=== PATIENT | female | born 1935 | race Caucasian/White ===

== ENCOUNTER 2016-07-21 11:14 | Emergency (ER) | payer OTHER, MEDICARE ==
[~2016-07-21] VITALS: Ht 175.3 cm; Wt 73.0 kg
[~2016-07-21 11:14] MED LIST: ASPI81 PO; LEXA10TA PO; LORTA5 PO; MULTCAP13 PO; SIMV20 PO
[2016-07-21 11:29] VITALS: BP 152/84; PULSE 79; RESP 17; TEMP 98.2; O2SAT 98
[2016-07-21] MEDS ORDERED: MULT1TAB84 PO (11:52)
[2016-07-21] MEDS ORDERED: LEXA10TA PO (11:52)
[2016-07-21] MEDS ORDERED: ZOCO20TA PO (11:52)
[2016-07-21] MEDS ORDERED: ASPI1TAB69 PO (11:52)
[2016-07-21] MEDS ORDERED: KETOROLAC TROMETHAMINE 60 MG/2 ML (IM) VIAL IM ONE (12:15)
[2016-07-21] MEDS ORDERED: ORPHENADRINE INJ 60 MG/2 ML AMP IM ONE (12:15)
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
[2016-07-21] MEDS ORDERED: MELO-1 PO (13:31)
[2016-07-21] MEDS ORDERED: CYCL5TAB PO (13:31)
== END 2016-07-21 13:35 | disposition home or self-care (01) ==
LOC: PHEFT 11:14
DX: S16.1XXA Strain of muscle, fascia and tendon at neck level, initial encounter (principal); I10 Essential (primary) hypertension; I50.9 Heart failure, unspecified; E78.00 Pure hypercholesterolemia, unspecified; F41.8 Other specified anxiety disorders; M19.90 Unspecified osteoarthritis, unspecified site; V43.52XA Car driver injured in collision with other type car in traffic accident, initial encounter; Y93.9 Activity, unspecified; Y92.9 Unspecified place or not applicable; Y99.9 Unspecified external cause status
CPT/HCPCS: 72040; 96372; 99283; J1885; J2360

== ENCOUNTER 2017-08-15 08:41 | Emergency (ER) | payer MEDICARE ==
[~2017-08-15] VITALS: Ht 175.3 cm; Wt 73.0 kg
[~2017-08-15 08:41] MED LIST changes: +ASPI1TAB69 PO; -ASPI81 PO; +CYCL5TAB PO; -LORTA5 PO; +MELO15TA20 PO; +MULT1TAB84 PO; -MULTCAP13 PO; -SIMV20 PO; +ZOCO20TA PO
[2017-08-15 08:58] VITALS: BP 134/74; PULSE 113; RESP 22; TEMP 99.2; O2SAT 100
--- NOTE | 2017-08-15 09:27 | RADRPT ---
EXAM DATE/TIME: 08/15/2017 09:11 [facility] COMPARISON: No previous studies available for comparison. INDICATIONS : Cough and fever. MEDICAL HISTORY : None. SURGICAL HISTORY : None. ENCOUNTER: Initial ACUITY: 1 week PAIN SCORE: 4/10 LOCATION: Bilateral chest FINDINGS: Calcified left lower lobe nodule. No significant focal parenchymal or pleural opacities. Cardiomedias tinal contours are within normal limits. Bony thorax is intact. CONCLUSION: 1. Left lower lobe granuloma. 2. No acute cardiopulmonary disease. Robert Brady MD on August 15, 2017 at 9:23 Board Certified Radiologist. This report was verified electronically.
[2017-08-15 09:57] LABS: AUTOMATED NEUTROPHIL # 5.4 TH/MM3 (1.8-7.7); BASOPHIL % 0.4 % (0.0-2.0); EOSINOPHIL # 0.1 TH/MM3 (0-0.4); EOSINOPHIL % 0.8 % (0.0-4.0); HEMATOCRIT 44.3 % (35.0-46.0); HEMOGLOBIN 15.1 GM/DL (11.6-15.3); LYMPH % 24.2 % (9.0-44.0); LYMPHOCYTE # 2.1 TH/MM3 (1.0-4.8); MEAN CELL VOLUME 89.4 FL (80.0-100.0); MEAN CORPUSCULAR HEMOGLOBIN 30.5 PG (27.0-34.0); MEAN CORPUSCULAR HGB CONC 34.1 % (32.0-36.0); MONO % 14.1 % (0.0-8.0); MONOCYTE # 1.2 TH/MM3 (0-0.9); NEUT % 60.5 % (16.0-70.0); PLATELET COUNT 172 TH/MM3 (150-450); RED BLOOD COUNT 4.95 MIL/MM3 (4.00-5.30); RED CELL DISTRIBUTION WIDTH 13.5 % (11.6-17.2); WHITE BLOOD COUNT 8.8 TH/MM3 (4.0-11.0)
[2017-08-15 10:04] LABS: PROTHROMBIN TIME - PATIENT 10.3 SEC (9.8-11.6)
[2017-08-15 10:16] LABS: BICARBONATE 24.6 MEQ/L (21.0-32.0); CALCIUM 8.7 MG/DL (8.5-10.1); CREATININE 1.12 MG/DL (0.50-1.00)
[2017-08-15 10:54] VITALS: BP 125/73; PULSE 94; RESP 19; O2SAT 98
--- NOTE | 2017-08-15 10:54 | PD ---
HPI Chief Complaint: Respiratory Symptoms Time Seen by Provider: 10:48 Travel History International Travel<30 days: No Contact w/Intl Traveler<30days: No Traveled to known affect area: No History of Present Illness HPI 81-year-old female patient with history of recent bronchitis, has had coughing, nasal congestion for several days, have been started on Tamiflu by her physician yesterday, presents to the ER today because she states she has not feeling better. She denies any recent fevers, vomiting, abdominal pains, chest pains, or other issues. Modifying Factors: None Associated Signs & Symptoms: Coughing, nasal congestion, shortness of breath Risk Factors: Recently started on Tamiflu PFSH Past Medical History Arthritis: Yes Blood Disorders: No Anxiety: Yes Depression: Yes Heart Rhythm Problems: No Cancer: Yes (SKIN CANCER) Cardiovascular Problems: Yes High Cholesterol: Yes Chemotherapy: No Chest Pain: No Congestive Heart Failure: Yes Diabetes: No Diminished Hearing: No Endocrine: No Genitourinary: Yes (URINARY INFECTION, CONSTRICTIONS OF URETHRA) Hepatitis: No Hiatal Hernia: No Hypertension: Yes Immune Disorder: No Medical other: Yes (ARTHRITIS) Musculoskeletal: Yes (ARTHRITIS) Neurologic: No Psychiatric: Yes Reproductive: No Respiratory: No Immunizations Current: No Myocardial Infarction: No Radiation Therapy: No Shingles: Yes Sickle Cell Disease: No Thyroid Disease: No Menopausal: Yes Past Surgical History Abdominal Surgery: Yes (APPENDECTOMY) AICD: No Appendectomy: Yes Arteriovenous Shunt: No Cardiac Surgery: No Endocrine Surgery: No Eye Surgery: Yes (SUKHWINDER CATARACT SX WITH LENS IMPLANT) Genitourinary Surgery: No Gynecologic Surgery: Yes (HYSTERECTOMY) Hysterectomy: Yes Insulin Pump: No Joint Replacement: No Oral Surgery: Yes (T&A) Pacemaker: No Thoracic Surgery: No Tonsillectomy: Yes Other Surgery: Yes Social History Alcohol Use: Yes Tobacco Use: No (QUIT 25 YEARS AGO ) Substance Use: No Allergies-Medications (Allergen,Severity, Reaction): Coded Allergies: diatrizoate meglumine (Unverified Allergy, Severe, A CHILD FOR IVP AND WENT IN TO A COMA PER PT, 08/15/17) gadobenic acid (Unverified Allergy, Severe, A CHILD FOR IVP AND WENT IN TO A COMA PER PT, 08/15/17) gadodiamide (Unverified Allergy, Severe, A CHILD FOR IVP AND WENT IN TO A COMA PER PT, 08/15/17) gadoteridol (Unverified Allergy, Severe, A CHILD FOR IVP AND WENT IN TO A COMA PER PT, 08/15/17) iodixanol (Unverified Allergy, Severe, A CHILD FOR IVP AND WENT IN TO A COMA PER PT, 08/15/17) iohexol (Unverified Allergy, Severe, A CHILD FOR IVP AND WENT IN TO A COMA PER PT, 08/15/17) levofloxacin (Verified Allergy, Unknown, Hives, 08/15/17) Reported Meds & Prescriptions Reported Meds & Active Scripts Active Flexeril (Cyclobenzaprine HCl) 5 Mg Tab 5 Mg PO TID PRN 7 Days Meloxicam 15 Mg Tab 15 Mg PO DAILY 7 Days Reported Lexapro (Escitalopram Oxalate) 10 Mg Tab 20 Mg PO DAILY Review of Systems Except as stated in HPI: all other systems reviewed are Neg Physical Exam Narrative GENERAL: Well-developed elderly white female patient currently in mild distress. Awake and oriented 3. SKIN: Focused skin assessment warm/dry. HEAD: Atraumatic. Normocephalic. EYES: Pupils equal and round. No scleral icterus. No injection or drainage. ENT: No nasal bleeding or discharge. Mucous membranes pink and moist. Mild pharyngeal erythema without exudates. NECK: Trachea midline. No JVD. Supple. CARDIOVASCULAR: Regular rate and rhythm. No murmur appreciated. RESPIRATORY: No accessory muscle use. Clear to auscultation. Breath sounds equal bilaterally. GASTROINTESTINAL: Abdomen soft, non-tender, nondistended. Hepatic and splenic margins not palpable. MUSCULOSKELETAL: No obvious deformities. No clubbing. No cyanosis. No edema. NEUROLOGICAL: Awake and alert. No obvious cranial nerve deficits. Motor grossly within normal limits. Normal speech. PSYCHIATRIC: Appropriate mood and affect; insight and judgment normal. Data Data Last Documented VS Vital Signs Date Time Temp Pulse Resp B/P (MAP) Pulse Ox O2 Delivery O2 Flow Rate FiO2 08/15/17 10:54 94 19 125/73 (90) 98 Room Air 08/15/17 08:58 99.2 Orders Orders Complete Blood Count With Diff (08/15/17 09:00) Basic Metabolic Panel (Bmp) (08/15/17 09:00) Chest, Pa & Lat (08/15/17 09:00) Iv Access Insert/Monitor (08/15/17 09:00) Ecg Monitoring (08/15/17 09:00) Oxygen Administration (08/15/17 09:00) Oximetry (08/15/17 09:00) Electrocardiogram (08/15/17 09:00) Act Partial Throm Time (Ptt) (08/15/17 09:00) Prothrombin Time / Inr (Pt) (08/15/17 09:00) Influenzae A/B Antigen (08/15/17 10:48) Albuterol-Ipratropium Neb (Duoneb Neb) (08/15/17 11:00) Ed Discharge Order (08/15/17 12:13) Labs Laboratory Tests Test 08/15/17 09:30 White Blood Count 8.8 TH/MM3 Red Blood Count 4.95 MIL/MM3 Hemoglobin 15.1 GM/DL Hematocrit 44.3 % Mean Corpuscular Volume 89.4 FL Mean Corpuscular Hemoglobin 30.5 PG Mean Corpuscular Hemoglobin Concent 34.1 % Red Cell Distribution Width 13.5 % Platelet Count 172 TH/MM3 Mean Platelet Volume 10.0 FL Neutrophils (%) (Auto) 60.5 % Lymphocytes (%) (Auto) 24.2 % Monocytes (%) (Auto) 14.1 % Eosinophils (%) (Auto) 0.8 % Basophils (%) (Auto) 0.4 % Neutrophils # (Auto) 5.4 TH/MM3 Lymphocytes # (Auto) 2.1 TH/MM3 Monocytes # (Auto) 1.2 TH/MM3 Eosinophils # (Auto) 0.1 TH/MM3 Basophils # (Auto) 0.0 TH/MM3 CBC Comment DIFF FINAL Differential Comment Prothrombin Time 10.3 SEC Prothromb Time International Ratio 1.0 RATIO Activated Partial Thromboplast Time 26.8 SEC Blood Urea Nitrogen 14 MG/DL Creatinine 1.12 MG/DL Random Glucose 89 MG/DL Calcium Level 8.7 MG/DL Sodium Level 134 MEQ/L Potassium Level 3.6 MEQ/L Chloride Level 99 MEQ/L Carbon Dioxide Level 24.6 MEQ/L Anion Gap 10 MEQ/L Estimat Glomerular Filtration Rate 47 ML/MIN MDM Medical Decision Making Medical Screen Exam Complete: Yes Emergency Medical Condition: Yes Medical Record Reviewed: Yes Interpretation(s) Laboratory Tests Test 08/15/17 09:30 Monocytes (%) (Auto) 14.1 % (0.0-8.0) Monocytes # (Auto) 1.2 TH/MM3 (0-0.9) Creatinine 1.12 MG/DL (0.50-1.00) Sodium Level 134 MEQ/L (136-145) Estimat Glomerular Filtration Rate 47 ML/MIN (>89) Last 24 hours Impressions Chest X-Ray 08/15/17 0900 Signed Impressions: Service Date/Time: Tuesday, August 15, 2017 09:11 - CONCLUSION: 1. Left lower lobe granuloma. 2. No acute cardiopulmonary disease. Robert Brady MD Differential Diagnosis Bronchitis versus pneumonia versus URI Narrative Course Chest x-ray shows a left lower lobe granuloma without obvious signs of acute pulmonary processes. Her saturations are 98% in the ER. She does not appear to be in acute respiratory distress. She was given DuoNeb for some help with symptoms. Her influenza testing is turning up positive. Patient is already on Tamiflu. At this point, my plan would be to release her and have her continue medications and have her follow-up with primary care doctor. Return for any worsening in symptoms as needed. The plan has been discussed with her and she states understanding. Diagnosis Primary Impression: Influenza Med/Other Pt SpecificInfo: Prescription(s) given Scripts Albuterol 6.7 GM Inh (Proventil Hfa 6.7 GM Inh) 90 Mcg/Act Aer 2 PUFF INH Q4-6H Y for SHORTNESS OF BREATH, #1 INHALER 0 Refills Prov: Ivette Campos MD 08/15/17 Disposition: 01 DISCHARGE HOME Condition: Stable Ivette Campos MD Aug 15, 2017 10:54
[2017-08-15] MEDS ORDERED: RESP: ALBUTEROL 2.5 MG/IPRATROPIUM 0.5 MG NEB (SCH) INH ONE (11:00)
[2017-08-15] MEDS ORDERED: ALBU6.7H INH (12:16)
--- NOTE | 2017-08-15 14:48 | EKG ---
Date Performed: 08/15/2017 Time Performed: 09:25:55 PTAGE: 81 years EKG: Sinus rhythm NONSPECIFIC ST DEPRESSION BORDERLINE ECG PREVIOUS TRACING : 04/04/2011 10.31 Compared to previous tracing minimal nonspecific ST depress ion is now present. DOCTOR: Cory Camilo Interpretating Date/Time 08/15/2017 14:47:05
== END 2017-08-15 12:26 | disposition home or self-care (01) ==
LOC: NEPC 08:41
DX: J11.1 Influenza due to unidentified influenza virus with other respiratory manifestations (principal); F32.9 Major depressive disorder, single episode, unspecified; I11.0 Hypertensive heart disease with heart failure; I50.9 Heart failure, unspecified; Z87.891 Personal history of nicotine dependence; Z79.899 Other long term (current) drug therapy
CPT/HCPCS: 71046; 80048; 85025; 85610; 85730; 87804; 93005; 94664